=== PATIENT | female | born 1975 | race Two or more races ===

== ENCOUNTER 2020-04-02 08:42 | Day surgery (SDC) | payer MEDICAID ==
[~2020-04-02] VITALS: Ht 157.5 cm; Wt 68.2 kg
[~2020-04-02 08:42] MED LIST: SODIUM CHLORIDE 0.9% 1,000 ML ONE
[2020-04-02] MEDS ORDERED: LIDOCAINE/PF 2% 5 ML VIAL IM ONE (08:43)
[2020-04-02] MEDS ORDERED: PROPOFOL 1% 20 ML VIAL IVP ONE (08:43)
[2020-04-02] MEDS ORDERED: SODIUM CHLORIDE 0.9% 1,000 ML IV ONE (09:00)
[2020-04-02] MEDS ORDERED: ATOR40TA71 PO (09:11)
[2020-04-02] MEDS ORDERED: METF-960 PO (09:11)
[2020-04-02 09:44] LABS: GLUCOMETER DEV NAME(LOC) SDS.; GLUCOSE,POINT OF CARE 128 MG/DL (70-110)
== END 2020-04-02 12:15 | disposition home or self-care (01) ==
LOC: SURGERY 08:42
PROVIDERS: ATTEND Student in an Organized Health Care Education/Training Program
DX: K31.89 Other diseases of stomach and duodenum (principal); K29.50 Unspecified chronic gastritis without bleeding; K21.0 Gastro-esophageal reflux disease with esophagitis; B96.89 Other specified bacterial agents as the cause of diseases classified elsewhere; E78.00 Pure hypercholesterolemia, unspecified; Z11.59 Encounter for screening for other viral diseases
CPT/HCPCS: 43239; 82962; 84703; 87635; 88305; 88312; 88313; J2704; J3490; J7030